=== PATIENT | male | born 1985 | race Caucasian/White ===

== ENCOUNTER 2018-05-29 20:06 | Inpatient (IN) | payer BC ==
[~2018-05-29] VITALS: Ht 170.2 cm; Wt 306.0 kg
[2018-05-29] MEDS ORDERED: PRINZIDE 12.5 M1 TAB PO (21:44)
[2018-05-29 22:41] LABS: HEMATOCRIT 42.1 % (42.0-52.0); MEAN CELL VOLUME 90 fl (80.0-100.0); MEAN CORPUSCULAR HEMOGLOBIN 28 pg (27.0-31.0); MEAN CORPUSCULAR HGB CONC 31 g/dl (33.0-37.0); MEAN PLATELET VOLUME 8.8 fl (7.4-10.4); PLATELET COUNT 267 K/mm3 (130-400); RED BLOOD COUNT 4.67 M/mm3 (4.20-5.60); REDCELL DISTRIBUTION WIDTH-CV 14.2 % (11.5-14.5)
[2018-05-29 22:45] LABS: INR 1.2 (0.8-3.0)
[2018-05-29 22:49] LABS: ALBUMIN 3.7 gm/dL (3.5-5.0); BILIRUBIN,TOTAL 0.5 mg/dL (0.0-1.0); CALCIUM 8.6 mg/dL (8.4-10.2); CREATININE, serum 0.8 mg/dL (0.66-1.25); POTASSIUM 4.4 mmol/L (3.4-5.0); TOTAL PROTEIN 6.9 gm/dL (6.4-8.2)
[2018-05-29] MEDS ORDERED: AMOXICILLIN 25250 MG (23:05)
[2018-05-29 23:27] LABS: BAND 2 % (0-10); EOSINOPHIL 3 % (0-4); LYMPHOCYTE 25 % (20.0-51.0); NEUTROPHILS 62 % (42.0-75.2); PLATELET ESTIMATE NORMAL (NORMAL)
[2018-05-29 23:28] LABS: HYPOCHROMIA 2+; POLYCHROMASIA 1+
[2018-05-30] VITALS (7 sets, daily range): BP systolic 148–181; BP diastolic 82–123; PULSE 74–90; TEMP 97.3–98.4
[2018-05-30 04:43] LABS: COLLECTION METHOD CLEAN CATCH
[2018-05-30 04:49] LABS: PH 6 (5-8); SQUAMOUS EPITHELIAL 0-2 /hpf; URINE APPEARANCE Clear; URINE BACTERIA None Seen /hpf; URINE BILIRUBIN Negative (NEGATIVE); URINE BLOOD Negative (NEGATIVE); URINE COLOR Yellow; URINE GLUCOSE Negative (NEGATIVE); URINE KETONE Negative (NEGATIVE); URINE LEUKOCYTE ESTERASE Negative (NEGATIVE); URINE NITRATE Negative (NEGATIVE); URINE PROTEIN(semi-quant) Negative (NEGATIVE); URINE RBC 0-2 /hpf; URINE UROBILINOGEN Negative (NEGATIVE)
[2018-05-30 06:24] LABS: HEMATOCRIT 44.5 % (42.0-52.0); HEMOGLOBIN 13.7 g/dl (13.5-18.0)
[2018-05-30 14:32] LABS: ARTERIAL BLD GAS O2 SATURATION 92.4 % (92-100); ARTERIAL BLD GAS TCO2 CT 36.9; ARTERIAL BLOOD GAS BASE EXCESS 4.6 (-2-2); ARTERIAL BLOOD GAS HCO3 34.5 meq/L (22-26); ARTERIAL BLOOD GAS PO2 74.7 mmHg (80-100); ARTERIAL BLOOD GAS pH 7.26 (7.35-7.45)
[2018-05-30 14:34] LABS: ARTERIAL BLOOD GAS PCO2 79.4 mmHg (35-45)
[2018-05-30 17:14] LABS: ARTERIAL BLD GAS O2 SATURATION 82.3 % (92-100); ARTERIAL BLD GAS TCO2 CT 37.8; ARTERIAL BLOOD GAS BASE EXCESS 4.9 (-2-2); ARTERIAL BLOOD GAS HCO3 35.3 meq/L (22-26); ARTERIAL BLOOD GAS PO2 52.4 mmHg (80-100); ARTERIAL BLOOD GAS pH 7.25 (7.35-7.45)
[2018-05-31] VITALS (13 sets, daily range): BP systolic 152–172; BP diastolic 73–123; PULSE 81–92; TEMP 97.2–100.4
[2018-05-31 07:07] LABS: BASO # 0.1 (0.0-0.2); BASO % 0.5 % (0.0-2.0); EOS # 0.1 (0.0-0.7); EOS % 0.5 % (0-4.0); GRAN % 80.9 % (42.2-75.2); HEMATOCRIT 41.5 % (42.0-52.0); HEMOGLOBIN 12.6 g/dl (13.5-18.0); LYMPH # 1.1 (1.2-3.4); LYMPH % 10.7 % (20.0-51.0); MEAN CELL VOLUME 92 fl (80.0-100.0); MEAN CORPUSCULAR HEMOGLOBIN 28 pg (27.0-31.0); MEAN CORPUSCULAR HGB CONC 30 g/dl (33.0-37.0); MEAN PLATELET VOLUME 9.1 fl (7.4-10.4); MONO # 0.7 (0.1-0.6); MONO % 6.9 % (1.7-9.3); PLATELET COUNT 298 K/mm3 (130-400); REDCELL DISTRIBUTION WIDTH-CV 14.1 % (11.5-14.5)
[2018-05-31 07:22] LABS: CALCIUM 8.8 mg/dL (8.4-10.2); CREATININE, serum 0.75 mg/dL (0.66-1.25); POTASSIUM 4.1 mmol/L (3.4-5.0)
[2018-05-31 13:19] LABS: ARTERIAL BLD GAS O2 SATURATION 93.3 % (92-100); ARTERIAL BLD GAS TCO2 CT 37.6; ARTERIAL BLOOD GAS BASE EXCESS 6.4 (-2-2); ARTERIAL BLOOD GAS HCO3 35.4 meq/L (22-26)
[2018-05-31 13:20] LABS: ARTERIAL BLOOD GAS PCO2 73.5 mmHg (35-45)
[2018-05-31 21:54] LABS: ARTERIAL BLD GAS O2 SATURATION 92.2 % (92-100); ARTERIAL BLD GAS TCO2 CT 38.1; ARTERIAL BLOOD GAS BASE EXCESS 7.7 (-2-2); ARTERIAL BLOOD GAS HCO3 35.9 meq/L (22-26); ARTERIAL BLOOD GAS PO2 66.9 mmHg (80-100); ARTERIAL BLOOD GAS pH 7.32 (7.35-7.45)
[2018-05-31 21:56] LABS: ARTERIAL BLOOD GAS PCO2 70.9 mmHg (35-45)
[2018-06-01] VITALS (600 sets, daily range): BP systolic 122–199; BP diastolic 55–127; PULSE 73–94; TEMP 97.9–100; O2SAT 79–100
[2018-06-01 01:23] LABS: ARTERIAL BLD GAS O2 SATURATION 96.2 % (92-100); ARTERIAL BLD GAS TCO2 CT 33.6; ARTERIAL BLOOD GAS BASE EXCESS 5.1 (-2-2); ARTERIAL BLOOD GAS HCO3 31.9 meq/L (22-26); ARTERIAL BLOOD GAS PCO2 56.5 mmHg (35-45); ARTERIAL BLOOD GAS pH 7.37 (7.35-7.45)
[2018-06-01 05:59] LABS: ARTERIAL BLD GAS O2 SATURATION 95.2 % (92-100); ARTERIAL BLD GAS TCO2 CT 39.5; ARTERIAL BLOOD GAS BASE EXCESS 8.3 (-2-2); ARTERIAL BLOOD GAS HCO3 37.2 meq/L (22-26); ARTERIAL BLOOD GAS PO2 84.8 mmHg (80-100); ARTERIAL BLOOD GAS pH 7.32 (7.35-7.45)
[2018-06-01 06:03] LABS: ARTERIAL BLOOD GAS PCO2 74.7 mmHg (35-45)
[2018-06-01 07:22] LABS: BASO % 0.4 % (0.0-2.0); EOS # 0.1 (0.0-0.7); EOS % 1.4 % (0-4.0); GRAN # 6.5 (1.4-6.5); GRAN % 70.5 % (42.2-75.2); HEMATOCRIT 39.8 % (42.0-52.0); HEMOGLOBIN 12.2 g/dl (13.5-18.0); LYMPH # 1.4 (1.2-3.4); LYMPH % 14.8 % (20.0-51.0); MEAN CELL VOLUME 91 fl (80.0-100.0); MEAN CORPUSCULAR HEMOGLOBIN 28 pg (27.0-31.0); MEAN CORPUSCULAR HGB CONC 31 g/dl (33.0-37.0); MEAN PLATELET VOLUME 8.7 fl (7.4-10.4); MONO # 1.2 (0.1-0.6); MONO % 12.6 % (1.7-9.3); PLATELET COUNT 307 K/mm3 (130-400); REDCELL DISTRIBUTION WIDTH-CV 14.1 % (11.5-14.5)
[2018-06-01 07:46] LABS: CALCIUM 8.8 mg/dL (8.4-10.2); CREATININE, serum 0.71 mg/dL (0.66-1.25); POTASSIUM 4.1 mmol/L (3.4-5.0)
[2018-06-01 12:40] LABS: ARTERIAL BLOOD GAS pH 7.33 (7.35-7.45)
[2018-06-01 12:41] LABS: ARTERIAL BLD GAS O2 SATURATION 87.3 % (92-100); ARTERIAL BLOOD GAS BASE EXCESS 7.5 (-2-2); ARTERIAL BLOOD GAS HCO3 36.1 meq/L (22-26); ARTERIAL BLOOD GAS PCO2 70.9 mmHg (35-45); ARTERIAL BLOOD GAS PO2 53.2 mmHg (80-100)
[2018-06-01 16:01] LABS: ARTERIAL BLOOD GAS PCO2 66.8 mmHg (35-45); ARTERIAL BLOOD GAS pH 7.34 (7.35-7.45)
[2018-06-01 16:02] LABS: ARTERIAL BLD GAS O2 SATURATION 91.8 % (92-100); ARTERIAL BLOOD GAS BASE EXCESS 7.5 (-2-2); ARTERIAL BLOOD GAS HCO3 35.6 meq/L (22-26); ARTERIAL BLOOD GAS PO2 67.4 mmHg (80-100)
[2018-06-01 18:12] LABS: ARTERIAL BLD GAS O2 SATURATION 91.9 % (92-100); ARTERIAL BLD GAS TCO2 CT 34.3; ARTERIAL BLOOD GAS BASE EXCESS 8.4 (-2-2); ARTERIAL BLOOD GAS HCO3 32.9 meq/L (22-26); ARTERIAL BLOOD GAS PO2 58.2 mmHg (80-100); ARTERIAL BLOOD GAS pH 7.48 (7.35-7.45)
[2018-06-01 18:12] LABS: CALCIUM 8.7 mg/dL (8.4-10.2); CREATININE, serum 0.94 mg/dL (0.66-1.25); MAGNESIUM 1.9 mg/dL (1.6-2.3); POTASSIUM 3.9 mmol/L (3.4-5.0)
[2018-06-02] VITALS (1139 sets, daily range): BP systolic 113–165; BP diastolic 66–107; PULSE 71–83; TEMP 97.8–98.8; O2SAT 89–100
[2018-06-02 05:33] LABS: ARTERIAL BLD GAS O2 SATURATION 89.9 % (92-100); ARTERIAL BLD GAS TCO2 CT 32.9; ARTERIAL BLOOD GAS BASE EXCESS 8.6 (-2-2); ARTERIAL BLOOD GAS HCO3 31.7 meq/L (22-26); ARTERIAL BLOOD GAS PCO2 38.2 mmHg (35-45); ARTERIAL BLOOD GAS PO2 54.7 mmHg (80-100); ARTERIAL BLOOD GAS pH 7.54 (7.35-7.45)
[2018-06-02 05:34] LABS: BASO # 0.1 (0.0-0.2); BASO % 0.7 % (0.0-2.0); EOS # 0.2 (0.0-0.7); EOS % 2.5 % (0-4.0); GRAN # 4.3 (1.4-6.5); GRAN % 62.7 % (42.2-75.2); HEMATOCRIT 37.6 % (42.0-52.0); HEMOGLOBIN 11.8 g/dl (13.5-18.0); LYMPH # 1.4 (1.2-3.4); MEAN CELL VOLUME 89 fl (80.0-100.0); MEAN CORPUSCULAR HEMOGLOBIN 28 pg (27.0-31.0); MEAN CORPUSCULAR HGB CONC 31 g/dl (33.0-37.0); MONO # 0.9 (0.1-0.6); MONO % 13.7 % (1.7-9.3); PLATELET COUNT 279 K/mm3 (130-400); RED BLOOD COUNT 4.24 M/mm3 (4.20-5.60); REDCELL DISTRIBUTION WIDTH-CV 14.3 % (11.5-14.5)
[2018-06-02 05:48] LABS: CALCIUM 8.9 mg/dL (8.4-10.2); MAGNESIUM 1.9 mg/dL (1.6-2.3); PHOSPHOROUS 3.4 mg/dL (2.5-4.5); POTASSIUM 3.4 mmol/L (3.4-5.0)
[2018-06-02 13:49] LABS: ARTERIAL BLD GAS O2 SATURATION 95.1 % (92-100); ARTERIAL BLD GAS TCO2 CT 42.2; ARTERIAL BLOOD GAS BASE EXCESS 13.3 (-2-2); ARTERIAL BLOOD GAS HCO3 40.3 meq/L (22-26); ARTERIAL BLOOD GAS PCO2 62.2 mmHg (35-45); ARTERIAL BLOOD GAS PO2 74.4 mmHg (80-100); ARTERIAL BLOOD GAS pH 7.43 (7.35-7.45)
[2018-06-02 18:27] LABS: CALCIUM 8.9 mg/dL (8.4-10.2); CREATININE, serum 1.12 mg/dL (0.66-1.25); MAGNESIUM 2.2 mg/dL (1.6-2.3); PHOSPHOROUS 6.3 mg/dL (2.5-4.5); POTASSIUM 4.1 mmol/L (3.4-5.0)
[2018-06-03] VITALS (790 sets, daily range): BP systolic 12–136; BP diastolic 63–89; PULSE 78–88; TEMP 97.3–98.8; O2SAT 84–99
[2018-06-03 05:26] LABS: BASO # 0.1 (0.0-0.2); BASO % 0.8 % (0.0-2.0); EOS # 0.3 (0.0-0.7); EOS % 4.8 % (0-4.0); GRAN # 4.2 (1.4-6.5); GRAN % 70.7 % (42.2-75.2); HEMATOCRIT 37.9 % (42.0-52.0); LYMPH # 0.6 (1.2-3.4); LYMPH % 10.7 % (20.0-51.0); MEAN CELL VOLUME 89 fl (80.0-100.0); MEAN CORPUSCULAR HEMOGLOBIN 28 pg (27.0-31.0); MEAN CORPUSCULAR HGB CONC 32 g/dl (33.0-37.0); MEAN PLATELET VOLUME 8.8 fl (7.4-10.4); MONO # 0.8 (0.1-0.6); MONO % 12.8 % (1.7-9.3); PLATELET COUNT 271 K/mm3 (130-400); RED BLOOD COUNT 4.24 M/mm3 (4.20-5.60); REDCELL DISTRIBUTION WIDTH-CV 14.7 % (11.5-14.5)
[2018-06-03 05:36] LABS: ARTERIAL BLD GAS O2 SATURATION 93.1 % (92-100); ARTERIAL BLD GAS TCO2 CT 36.6; ARTERIAL BLOOD GAS BASE EXCESS 9.3 (-2-2); ARTERIAL BLOOD GAS PCO2 52.1 mmHg (35-45); ARTERIAL BLOOD GAS pH 7.45 (7.35-7.45)
[2018-06-03 05:44] LABS: CALCIUM 8.6 mg/dL (8.4-10.2); CREATININE, serum 0.99 mg/dL (0.66-1.25); MAGNESIUM 2.3 mg/dL (1.6-2.3); PHOSPHOROUS 5.2 mg/dL (2.5-4.5); POTASSIUM 3.7 mmol/L (3.4-5.0)
[2018-06-04] VITALS (926 sets, daily range): BP systolic 95–154; BP diastolic 43–82; PULSE 77–95; TEMP 97.9–99.3; O2SAT 74–99
[2018-06-04 05:24] LABS: BASO % 0.6 % (0.0-2.0); EOS # 0.3 (0.0-0.7); GRAN # 3.6 (1.4-6.5); GRAN % 67.9 % (42.2-75.2); HEMATOCRIT 39.1 % (42.0-52.0); HEMOGLOBIN 11.8 g/dl (13.5-18.0); LYMPH # 0.8 (1.2-3.4); LYMPH % 15.8 % (20.0-51.0); MEAN CELL VOLUME 93 fl (80.0-100.0); MEAN CORPUSCULAR HEMOGLOBIN 28 pg (27.0-31.0); MEAN CORPUSCULAR HGB CONC 30 g/dl (33.0-37.0); MEAN PLATELET VOLUME 8.4 fl (7.4-10.4); MONO # 0.6 (0.1-0.6); MONO % 10.5 % (1.7-9.3); PLATELET COUNT 253 K/mm3 (130-400); RED BLOOD COUNT 4.22 M/mm3 (4.20-5.60)
[2018-06-04 05:37] LABS: CALCIUM 8.5 mg/dL (8.4-10.2); CREATININE, serum 1.28 mg/dL (0.66-1.25); POTASSIUM 4.1 mmol/L (3.4-5.0)
[2018-06-04 05:48] LABS: MAGNESIUM 2.4 mg/dL (1.6-2.3); PHOSPHOROUS 5.7 mg/dL (2.5-4.5)
[2018-06-04 06:13] LABS: ARTERIAL BLOOD GAS pH 7.34 (7.35-7.45)
[2018-06-04 06:16] LABS: ARTERIAL BLOOD GAS BASE EXCESS 7.5 (-2-2); ARTERIAL BLOOD GAS HCO3 35.4 meq/L (22-26); ARTERIAL BLOOD GAS PO2 64.5 mmHg (80-100)
[2018-06-04 06:17] LABS: ARTERIAL BLD GAS TCO2 CT 37.5
[2018-06-04 13:48] LABS: COLLECTION METHOD CLEAN CATCH
[2018-06-04 13:57] LABS: PH 5 (5-8); URINE APPEARANCE Hazy; URINE BACTERIA None Seen /hpf; URINE BILIRUBIN Negative (NEGATIVE); URINE BLOOD 2+ (NEGATIVE); URINE COLOR Yellow; URINE GLUCOSE Negative (NEGATIVE); URINE KETONE Negative (NEGATIVE); URINE LEUKOCYTE ESTERASE Trace (NEGATIVE); URINE NITRATE Negative (NEGATIVE); URINE PROTEIN(semi-quant) 2+ (NEGATIVE); URINE RBC >50 /hpf; URINE UROBILINOGEN >=4.0 mg/dL (NEGATIVE)
[2018-06-04 17:37] LABS: ARTERIAL BLD GAS TCO2 CT 35.9; ARTERIAL BLOOD GAS BASE EXCESS 6.6 (-2-2); ARTERIAL BLOOD GAS HCO3 33.9 meq/L (22-26); ARTERIAL BLOOD GAS PCO2 62.9 mmHg (35-45); ARTERIAL BLOOD GAS PO2 61.5 mmHg (80-100); ARTERIAL BLOOD GAS pH 7.35 (7.35-7.45)
[2018-06-04 22:14] LABS: ARTERIAL BLD GAS O2 SATURATION 91.3 % (92-100); ARTERIAL BLD GAS TCO2 CT 33.3; ARTERIAL BLOOD GAS BASE EXCESS 6.2 (-2-2); ARTERIAL BLOOD GAS HCO3 31.8 meq/L (22-26); ARTERIAL BLOOD GAS PCO2 50.2 mmHg (35-45); ARTERIAL BLOOD GAS PO2 60.5 mmHg (80-100); ARTERIAL BLOOD GAS pH 7.42 (7.35-7.45)
[2018-06-05] VITALS (1414 sets, daily range): BP systolic 117–146; BP diastolic 70–89; PULSE 75–90; TEMP 98.5–100.8; O2SAT 88–100
[2018-06-05 00:14] LABS: ARTERIAL BLD GAS O2 SATURATION 94.6 % (92-100); ARTERIAL BLD GAS TCO2 CT 34.5; ARTERIAL BLOOD GAS BASE EXCESS 6.9 (-2-2); ARTERIAL BLOOD GAS HCO3 32.9 meq/L (22-26); ARTERIAL BLOOD GAS PCO2 53.1 mmHg (35-45); ARTERIAL BLOOD GAS PO2 77.7 mmHg (80-100); ARTERIAL BLOOD GAS pH 7.41 (7.35-7.45)
[2018-06-05 05:28] LABS: BASO % 0.6 % (0.0-2.0); EOS # 0.3 (0.0-0.7); EOS % 5.8 % (0-4.0); GRAN # 3.3 (1.4-6.5); GRAN % 66.2 % (42.2-75.2); HEMOGLOBIN 11.2 g/dl (13.5-18.0); LYMPH # 0.7 (1.2-3.4); LYMPH % 13.8 % (20.0-51.0); MEAN CELL VOLUME 92 fl (80.0-100.0); MEAN CORPUSCULAR HEMOGLOBIN 28 pg (27.0-31.0); MEAN CORPUSCULAR HGB CONC 31 g/dl (33.0-37.0); MEAN PLATELET VOLUME 9.1 fl (7.4-10.4); MONO # 0.7 (0.1-0.6); MONO % 13.4 % (1.7-9.3); PLATELET COUNT 259 K/mm3 (130-400)
[2018-06-05 05:29] LABS: HEMATOCRIT 36.7 % (42.0-52.0)
[2018-06-05 05:37] LABS: CALCIUM 8.8 mg/dL (8.4-10.2); CREATININE, serum 0.9 mg/dL (0.66-1.25); POTASSIUM 4.3 mmol/L (3.4-5.0)
[2018-06-06] VITALS (1188 sets, daily range): BP systolic 128–149; BP diastolic 76–97; PULSE 78–99; TEMP 98.9–100.7; O2SAT 78–100
[2018-06-06 06:18] LABS: ALBUMIN 3.6 gm/dL (3.5-5.0); BILIRUBIN,TOTAL 0.6 mg/dL (0.0-1.0); CREATININE, serum 0.77 mg/dL (0.66-1.25); MAGNESIUM 2.3 mg/dL (1.6-2.3); POTASSIUM 4.4 mmol/L (3.4-5.0)
[2018-06-06 06:25] LABS: PRE ALBUMIN 15.9 mg/dL (17.6-36.0)
[2018-06-06 09:09] LABS: BASO % 0.3 % (0.0-2.0); EOS # 0.3 (0.0-0.7); EOS % 4.7 % (0-4.0); GRAN # 3.9 (1.4-6.5); GRAN % 67.7 % (42.2-75.2); HEMATOCRIT 37.3 % (42.0-52.0); HEMOGLOBIN 11.2 g/dl (13.5-18.0); LYMPH # 0.9 (1.2-3.4); LYMPH % 15.3 % (20.0-51.0); MEAN CELL VOLUME 93 fl (80.0-100.0); MEAN CORPUSCULAR HEMOGLOBIN 28 pg (27.0-31.0); MEAN CORPUSCULAR HGB CONC 30 g/dl (33.0-37.0); MEAN PLATELET VOLUME 9.6 fl (7.4-10.4); MONO # 0.7 (0.1-0.6); MONO % 11.8 % (1.7-9.3); PLATELET COUNT 260 K/mm3 (130-400); RED BLOOD COUNT 4.02 M/mm3 (4.20-5.60); REDCELL DISTRIBUTION WIDTH-CV 14.6 % (11.5-14.5)
[2018-06-06 14:45] LABS: COLLECTION METHOD CLEAN CATCH
[2018-06-06 15:07] LABS: PH 9 (5-8); SQUAMOUS EPITHELIAL None Seen /hpf; URINE APPEARANCE Clear; URINE BACTERIA None Seen /hpf; URINE BILIRUBIN Negative (NEGATIVE); URINE BLOOD 2+ (NEGATIVE); URINE COLOR Yellow; URINE GLUCOSE Negative (NEGATIVE); URINE KETONE Negative (NEGATIVE); URINE LEUKOCYTE ESTERASE Negative (NEGATIVE); URINE NITRATE Negative (NEGATIVE); URINE PROTEIN(semi-quant) 2+ (NEGATIVE); URINE RBC >50 /hpf; URINE UROBILINOGEN >=4.0 mg/dL (NEGATIVE)
[2018-06-07] VITALS (452 sets, daily range): BP systolic 124–145; BP diastolic 67–97; PULSE 75–99; TEMP 99.1–99.6; O2SAT 84–99
[2018-06-07 05:28] LABS: BASO % 0.1 % (0.0-2.0); GRAN # 6.1 (1.4-6.5); GRAN % 88.9 % (42.2-75.2); HEMOGLOBIN 11.3 g/dl (13.5-18.0); LYMPH # 0.5 (1.2-3.4); LYMPH % 6.8 % (20.0-51.0); MEAN CELL VOLUME 91 fl (80.0-100.0); MEAN CORPUSCULAR HEMOGLOBIN 29 pg (27.0-31.0); MEAN CORPUSCULAR HGB CONC 32 g/dl (33.0-37.0); MEAN PLATELET VOLUME 9.2 fl (7.4-10.4); MONO # 0.3 (0.1-0.6); MONO % 3.9 % (1.7-9.3); PLATELET COUNT 290 K/mm3 (130-400); RED BLOOD COUNT 3.92 M/mm3 (4.20-5.60); REDCELL DISTRIBUTION WIDTH-CV 14.1 % (11.5-14.5)
[2018-06-07 05:31] LABS: HEMATOCRIT 35.7 % (42.0-52.0)
[2018-06-07 05:40] LABS: ALBUMIN 3.6 gm/dL (3.5-5.0); BILIRUBIN,TOTAL 0.3 mg/dL (0.0-1.0); CALCIUM 9.2 mg/dL (8.4-10.2); CREATININE, serum 0.75 mg/dL (0.66-1.25); POTASSIUM 4.8 mmol/L (3.4-5.0); TOTAL PROTEIN 7.1 gm/dL (6.4-8.2)
[2018-06-07 05:50] LABS: MAGNESIUM 2.2 mg/dL (1.6-2.3)
[2018-06-07 06:01] LABS: ARTERIAL BLD GAS O2 SATURATION 91.6 % (92-100); ARTERIAL BLD GAS TCO2 CT 35.3; ARTERIAL BLOOD GAS BASE EXCESS 6.7 (-2-2); ARTERIAL BLOOD GAS HCO3 33.5 meq/L (22-26); ARTERIAL BLOOD GAS PCO2 58.6 mmHg (35-45); ARTERIAL BLOOD GAS PO2 73.5 mmHg (80-100); ARTERIAL BLOOD GAS pH 7.38 (7.35-7.45)
== END 2018-06-07 10:45 | DRG 207 ==
LOC: COL.ER 20:06 → MEDICAL 22:35 → COL.ER 22:35 → ICU 22:35 → MEDICAL 05-31 06:21 → ICU 06-01 07:40 → MEDICAL 06-01 07:40 → ICU 06-01 07:40
PROVIDERS: Emergency Medicine; Internal Medicine; Internal Medicine Pulmonary Disease; Nurse Practitioner; Nurse Practitioner Family; Physician Assistant
PROC: 5A1955Z Respiratory Ventilation, Greater than 96 Consecutive Hours (ICD-10-PCS; principal; 2018-06-01)
DX: J96.01 Acute respiratory failure with hypoxia (principal); J69.0 Pneumonitis due to inhalation of food and vomit; Z68.44 Body mass index [BMI] 60.0-69.9, adult; N17.9 Acute kidney failure, unspecified; E87.4 Mixed disorder of acid-base balance; I16.0 Hypertensive urgency; J96.02 Acute respiratory failure with hypercapnia; R04.0 Epistaxis; E66.01 Morbid (severe) obesity due to excess calories; Z87.891 Personal history of nicotine dependence; I10 Essential (primary) hypertension; E83.39 Other disorders of phosphorus metabolism
CPT/HCPCS: 99223-AI; 99231-AI; 99232-AI; 99233-AI; 99239; A4314; C1751; C1894; G0378; J0330; J0360; J1650; J1940; J2250; J2543; J2704; J2930; J3010; J3480; J7030; J7040; J7050; J7120; P9047

== ENCOUNTER → 2018-07-07 | Outpatient (CLI) | payer BC ==
[~2018-07-07] MED LIST: AMOXICILLIN 25250 MG; PRINZIDE 12.5 M1 TAB PO
== END ==
LOC: COL.VAS 09:14
DX: I27.20 Pulmonary hypertension, unspecified (principal); J32.9 Chronic sinusitis, unspecified

== ENCOUNTER → 2018-08-08 | Outpatient (CLI) | payer BC | LOC: COL.PUL 11:26 | DX: I27.20 Pulmonary hypertension, unspecified (principal); R05 Cough; J32.9 Chronic sinusitis, unspecified; Z87.891 Personal history of nicotine dependence ==

== ENCOUNTER → 2018-12-26 | Outpatient (CLI) | payer BC ==
[2018-12-26 12:10] LABS: ARTERIAL BLD GAS O2 SATURATION 91.9 % (92-100); ARTERIAL BLD GAS TCO2 CT 30.4; ARTERIAL BLOOD GAS BASE EXCESS 4.2 (-2-2); ARTERIAL BLOOD GAS PCO2 43.8 mmHg (35-45); ARTERIAL BLOOD GAS pH 7.44 (7.35-7.45)
== END ==
LOC: COL.PUL 12-08 11:15
PROVIDERS: Internal Medicine Pulmonary Disease
DX: J96.12 Chronic respiratory failure with hypercapnia (principal)

== ENCOUNTER 2019-03-06 17:21 | Inpatient (IN) | payer BC ==
[2019-03-06] VITALS (45 sets, daily range): BP systolic 129; BP diastolic 60; PULSE 79; TEMP 97.6; O2SAT 59–100
[~2019-03-06] VITALS: Ht 170.2 cm; Wt 188.0 kg
[2019-03-06 18:10] LABS: BASO % 0.5 % (0.0-2.0); EOS # 0.2 (0.0-0.7); EOS % 2.9 % (0-4.0); GRAN # 3.7 (1.4-6.5); GRAN % 62.8 % (42.2-75.2); HEMATOCRIT 46.3 % (42.0-52.0); HEMOGLOBIN 15.1 g/dl (13.5-18.0); LYMPH # 1.4 (1.2-3.4); LYMPH % 23.2 % (20.0-51.0); MEAN CELL VOLUME 88 fl (80.0-100.0); MEAN CORPUSCULAR HEMOGLOBIN 29 pg (27.0-31.0); MEAN CORPUSCULAR HGB CONC 33 g/dl (33.0-37.0); MEAN PLATELET VOLUME 8.9 fl (7.4-10.4); MONO # 0.6 (0.1-0.6); MONO % 10.1 % (1.7-9.3); PLATELET COUNT 288 K/mm3 (130-400); RED BLOOD COUNT 5.28 M/mm3 (4.20-5.60); REDCELL DISTRIBUTION WIDTH-CV 14.5 % (11.5-14.5)
[2019-03-06 18:22] LABS: ALANINE AMINOTRANSFERASE 186 U/L (21-72); ALBUMIN 4.7 gm/dL (3.5-5.0); ALKALINE PHOSPHATASE 150 U/L (50-136); ANION GAP 12 mmol/L (7-16); AST,SGOT 157 U/L (15-37); BILIRUBIN,TOTAL 3.8 mg/dL (0.0-1.0); BLOOD UREA NITROGEN 13 mg/dL (9-20); CALCIUM 9.5 mg/dL (8.4-10.2); CARBON DIOXIDE 29 mmol/L (22-30); CHLORIDE 99 mmol/L (98-107); CREATININE, serum 1.21 (0.66-1.25); GLUCOSE 119 mg/dL (74-106); POTASSIUM 3.6 mmol/L (3.4-5.0); SODIUM 139 mmol/L (137-145); TOTAL PROTEIN 8.5 gm/dL (6.4-8.2)
[2019-03-06 18:42] LABS: TROPONIN-I < 0.012 ng/mL (0.000-0.035)
[2019-03-06 19:28] LABS: LIPASE 33360 U/L (23-300)
[2019-03-06 21:06] LABS: CHOLESTEROL RISK RATIO 4.4
--- NOTE | 2019-03-06 21:33 | NUR ---
RECEIVED REPORT FROM RAMAN VALENTE.
--- NOTE | 2019-03-06 21:45 | NUR ---
PT ARRIVED ON UNIT, ABLE TO TRANSFER SELF TO BED WITH STANDBY ASSIST. PT ALERT AND ORIENTED X 4, COMPLAINS OF PAIN IN THE ABDOMEN /. PT ORIENTED TO ROOM, USE OF CALL LIGHT AND HOSPITAL POLICY. PT VERBALIZED UNDERSTANDING. WILL CONTINUE TO MONITOR.
[2019-03-06] MEDS ORDERED: HYGROTON 2525 MG/TAB PO (22:01)
[2019-03-06] MEDS ORDERED: NORVASC 10MG10 MG PO (22:02)
[2019-03-06] MEDS ORDERED: PRINIVIL40 MG PO (22:02)
[2019-03-06] MEDS ORDERED: ROBITUSSIN A-C S1 M1 PO (22:04)
[2019-03-06] MEDS ORDERED: IPRATROPIUM BROM3 M1 IH (22:05)
[2019-03-06] MEDS ORDERED: CATAPRES 0.1MG0.1 MG PO (22:07)
[2019-03-06] MEDS ORDERED: PEPCID 20MG TAB20 MG PO (22:08)
[2019-03-06] MEDS ORDERED: LASIX 20MG TABL20 MG PO (22:09)
[2019-03-07] VITALS (831 sets, daily range): BP systolic 126–184; BP diastolic 77–126; PULSE 86–109; TEMP 97.5–98.3; O2SAT 58–100
[2019-03-07 00:01] LABS: PHOSPHOROUS 3.8 mg/dL (2.5-4.5)
[2019-03-07 05:05] LABS: HEMATOCRIT 51.8 % (42.0-52.0); HEMOGLOBIN 16.5 g/dl (13.5-18.0); MEAN CELL VOLUME 90 fl (80.0-100.0); MEAN CORPUSCULAR HEMOGLOBIN 29 pg (27.0-31.0); MEAN CORPUSCULAR HGB CONC 32 g/dl (33.0-37.0); MEAN PLATELET VOLUME 8.8 fl (7.4-10.4); PLATELET COUNT 297 K/mm3 (130-400); RED BLOOD COUNT 5.77 M/mm3 (4.20-5.60)
[2019-03-07 05:15] LABS: ALBUMIN 4.5 gm/dL (3.5-5.0); BILIRUBIN,TOTAL 1.4 mg/dL (0.0-1.0); CALCIUM 8.5 mg/dL (8.4-10.2); CREATININE, serum 0.94 (0.66-1.25); POTASSIUM 4.1 mmol/L (3.4-5.0)
[2019-03-07 05:26] LABS: INR 1.1 (0.8-3.0); PROTHROMBIN TIME 12.7 SECONDS (9.7-12.8)
[2019-03-07 05:34] LABS: LYMPHOCYTE 2 % (20.0-51.0); NEUTROPHILS 92 % (42.0-75.2)
[2019-03-07 05:35] LABS: HYPOCHROMIA 2+; PLATELET ESTIMATE NORMAL (NORMAL)
--- NOTE | 2019-03-07 07:00 | NUR ---
BEDSIDE REPORT RECEIVED FROM RAMAN DEGROOT. PATIENT CURRENTLY SLEEPING AT THIS TIME. VS WNL. PLAN OF CARE REVIEWED AT THIS TIME.
--- NOTE | 2019-03-07 12:30 | NUR ---
DR. SCOTT HERE TO SEE PATIENT. NO NEW ORDERS RECEIVED
--- NOTE | 2019-03-07 16:17 | NUR ---
DR. MALAGON HERE TO SEE PATIENT FOR CONSULT
[2019-03-08] VITALS (834 sets, daily range): BP systolic 92–151; BP diastolic 45–87; PULSE 60–100; TEMP 97.6–98.2; O2SAT 34–100
[2019-03-08 06:14] LABS: HEMOGLOBIN 16.7 g/dl (13.5-18.0); MEAN CELL VOLUME 91 fl (80.0-100.0); MEAN CORPUSCULAR HEMOGLOBIN 29 pg (27.0-31.0); MEAN CORPUSCULAR HGB CONC 32 g/dl (33.0-37.0); MEAN PLATELET VOLUME 9.2 fl (7.4-10.4); PLATELET COUNT 322 K/mm3 (130-400); RED BLOOD COUNT 5.79 M/mm3 (4.20-5.60); REDCELL DISTRIBUTION WIDTH-CV 16.7 % (11.5-14.5)
[2019-03-08 06:30] LABS: ALBUMIN 3.7 gm/dL (3.5-5.0); BILIRUBIN,TOTAL 1.5 mg/dL (0.0-1.0); CALCIUM 7.8 mg/dL (8.4-10.2); CREATININE, serum 2.58 (0.66-1.25); TOTAL PROTEIN 6.9 gm/dL (6.4-8.2)
[2019-03-08 06:51] LABS: HEMATOCRIT 52.9 % (42.0-52.0)
--- NOTE | 2019-03-08 08:16 | NUR ---
Sitting up at bedside. Awake alert, reports lessening of abdominal pain this am with use of WAITER/WAITRESS CLUB. SPO2 on RA 87-88. Placed on NC, orders for IS obtained, enc cough and deep breathe, LLL diminished posteriorly, crackles to right base. SPO2 on 3L 92%.
--- NOTE | 2019-03-08 09:00 | NUR ---
Pt bp MAP around 50, more drowsy, RN turns off continuous dilaudid, hospitalist notified of increased oxygen needs and lower bp this am.
[2019-03-08 09:27] LABS: BAND 9 % (0-10); LYMPHOCYTE 9 % (20.0-51.0); NEUTROPHILS 72 % (42.0-75.2)
[2019-03-08 09:29] LABS: PLATELET ESTIMATE NORMAL (NORMAL)
--- NOTE | 2019-03-08 10:26 | NUR ---
Initial visit; Patient thanked Wad Compressor Operator Adjuster for looking in on him and keeping him in her prayers.
--- NOTE | 2019-03-08 14:16 | NUR ---
Consult called to GI. Abd CT results/US results reviewed by phone. No orders at this time.
[2019-03-08 14:33] LABS: MUCOUS Present /lpf; PH 5 (5-8); SQUAMOUS EPITHELIAL 0-2 /hpf; URINE APPEARANCE Hazy; URINE BACTERIA None Seen /hpf; URINE BILIRUBIN Negative (NEGATIVE); URINE BLOOD Negative (NEGATIVE); URINE COLOR Amber; URINE GLUCOSE Negative (NEGATIVE); URINE KETONE Negative (NEGATIVE); URINE LEUKOCYTE ESTERASE Negative (NEGATIVE); URINE NITRATE Negative (NEGATIVE); URINE PROTEIN(semi-quant) Negative (NEGATIVE); URINE RBC 0-2 /hpf; URINE UROBILINOGEN Negative (NEGATIVE)
[2019-03-08 14:37] LABS: COLLECTION METHOD CATHETER
[2019-03-08 15:47] LABS: CREATININE, serum 3.09 (0.66-1.25)
[2019-03-08 16:06] LABS: FRACTIONAL EXCRETION OF NA+ 0.1 %
--- NOTE | 2019-03-08 17:15 | NUR ---
Dr Layne notified of urine output of 250 for entire shift. Orders to decrease IV fluids to 50ml/hr. RN repeats decreased urine output and reconfirms rate change. MD indicates concern for fluid overload.
[2019-03-09] VITALS (442 sets, daily range): BP systolic 136–154; BP diastolic 73–97; PULSE 78–103; TEMP 97.8–98.6; O2SAT 58–100
[2019-03-09 05:50] LABS: HEMATOCRIT 43.4 % (42.0-52.0); MEAN CELL VOLUME 90 fl (80.0-100.0); MEAN CORPUSCULAR HEMOGLOBIN 28 pg (27.0-31.0); MEAN CORPUSCULAR HGB CONC 31 g/dl (33.0-37.0); PLATELET COUNT 245 K/mm3 (130-400); RED BLOOD COUNT 4.83 M/mm3 (4.20-5.60); REDCELL DISTRIBUTION WIDTH-CV 15.9 % (11.5-14.5)
[2019-03-09 05:55] LABS: HEMOGLOBIN 13.6 g/dl (13.5-18.0)
[2019-03-09 05:58] LABS: CREATININE, serum 3.06 (0.66-1.25); POTASSIUM 3.4 mmol/L (3.4-5.0)
[2019-03-09 06:06] LABS: BAND 6 % (0-10); EOSINOPHIL 4 % (0-4); LYMPHOCYTE 5 % (20.0-51.0); NEUTROPHILS 71 % (42.0-75.2); PLATELET ESTIMATE NORMAL (NORMAL)
--- NOTE | 2019-03-09 09:00 | NUR ---
Pt c/o epigastric pain 5/10 described as wrenching, provider informed. Pt denies nausea and has no appetite. Pt provided ice chips.
--- NOTE | 2019-03-09 10:33 | NUR ---
PA[employer]MASTER [employer] student attended clinical rounds with the team. The patient is to stay in ICU and continue to be monitored. PT/OT was ordered. medical staff services coordinator will continue to follow to ensure safe discharge.
--- NOTE | 2019-03-09 14:00 | NUR ---
1201: BS 61; pt provided grape juice with two packets of sugar and one jello. Pt easily able to eat. Will reassess. 1349: BS 76; pt provided one Ensure drink. Will reassess. 1400: Provider informed of blood sugar; wishes to increase D5NS to 75/hr. And assess BS Q4. 1659: BS 78.
--- NOTE | 2019-03-09 18:00 | NUR ---
Pt having decreased output over past two hours. Bladder scan shows pt retaining 587ml of urine. Provider contacted; replacing moreira catheter. 1814: Moreira catheter replaced with 16F by sterile technique. Pt tolerated well. Pt output is 775mL.
--- NOTE | 2019-03-09 20:00 | NUR ---
Patient assessed, vitals stable. States pain level is a 3 but is tolerable. Will continue to monitor.
[2019-03-10] VITALS (686 sets, daily range): BP systolic 135–165; BP diastolic 83–110; PULSE 77–92; TEMP 97.8–99.1; O2SAT 36–99
[2019-03-10 06:07] LABS: BASO % 0.3 % (0.0-2.0); EOS # 0.3 (0.0-0.7); EOS % 3.1 % (0-4.0); GRAN % 73.7 % (42.2-75.2); HEMATOCRIT 39.6 % (42.0-52.0); HEMOGLOBIN 12.6 g/dl (13.5-18.0); MEAN CELL VOLUME 90 fl (80.0-100.0); MEAN CORPUSCULAR HEMOGLOBIN 29 pg (27.0-31.0); MEAN CORPUSCULAR HGB CONC 32 g/dl (33.0-37.0); MEAN PLATELET VOLUME 9.2 fl (7.4-10.4); MONO # 1.4 (0.1-0.6); MONO % 13.3 % (1.7-9.3); PLATELET COUNT 247 K/mm3 (130-400); RED BLOOD COUNT 4.38 M/mm3 (4.20-5.60); REDCELL DISTRIBUTION WIDTH-CV 15.7 % (11.5-14.5)
[2019-03-10 06:17] LABS: ALBUMIN 3.4 gm/dL (3.5-5.0); BILIRUBIN,TOTAL 1.1 mg/dL (0.0-1.0); CALCIUM 8.7 mg/dL (8.4-10.2); CREATININE, serum 2.19 (0.66-1.25); MAGNESIUM 2.4 mg/dL (1.6-2.3); POTASSIUM 3.5 mmol/L (3.4-5.0); TOTAL PROTEIN 6.8 gm/dL (6.4-8.2)
--- NOTE | 2019-03-10 07:45 | NUR ---
PTS PAIN IS AT 5/10 IN EPIGASTRIC REGION DESCRIBED "WRENCHING". PT DENIES SOB OR PAIN ELSEWHERE. PT DOES ADMIT TO HAVING FREQUENT FLATULENCE THIS AM.
--- NOTE | 2019-03-10 16:30 | NUR ---
PT STATES HIS PAIN RANGES FROM 3-5/10 IN EPIGASTRIC REGION DESCRIBED "WRENCHING" AND CONTINUES TO HAVE FREQUENT FLATULANCE WHICH HE BELIEVES IS CAUSING MOST OF HIS DISCOMFORT.
--- NOTE | 2019-03-10 16:55 | NUR ---
1655: BS 59. PT PROVIDED SPRITE PER REQUEST AND HYPOGLYCEMIC PROTOCOL INITIATED. PT ORDERED THREE PROTEIN JELLO'S, BUT HAS NO APPETITE TO EAT THEM AT PRESENT MOMENT. 1710: ADMINISTERED HALF AMP OF D50 PER HYPOGLYCEMIC PROTOCOL.
--- NOTE | 2019-03-10 18:10 | NUR ---
1809: PT STATES HE FEELS "REALLY HOT" ALL OVER HIS BODY. CURRENT VS: BP 145/82, HR 93, SP02 98%, RR 18, TEMP 98.6 ORAL 1814: BS 81 PT STATES IT'S GOING AWAY. FAN TURNED ON ABOVE PT ON LOW. WILL CONTINUE TO MONITOR.
[2019-03-11] VITALS (836 sets, daily range): BP systolic 114–177; BP diastolic 64–103; PULSE 71–88; TEMP 97.8–98.5; O2SAT 39–100
[2019-03-11 05:31] LABS: BASO % 0.3 % (0.0-2.0); EOS # 0.3 (0.0-0.7); EOS % 4.8 % (0-4.0); GRAN % 66.5 % (42.2-75.2); HEMATOCRIT 38.1 % (42.0-52.0); LYMPH # 0.7 (1.2-3.4); LYMPH % 11.3 % (20.0-51.0); MEAN CELL VOLUME 91 fl (80.0-100.0); MEAN CORPUSCULAR HEMOGLOBIN 29 pg (27.0-31.0); MEAN CORPUSCULAR HGB CONC 32 g/dl (33.0-37.0); MEAN PLATELET VOLUME 9.5 fl (7.4-10.4); MONO % 16.4 % (1.7-9.3); PLATELET COUNT 251 K/mm3 (130-400); RED BLOOD COUNT 4.17 M/mm3 (4.20-5.60); REDCELL DISTRIBUTION WIDTH-CV 15.3 % (11.5-14.5)
[2019-03-11 05:43] LABS: ALBUMIN 3.4 gm/dL (3.5-5.0); BILIRUBIN,TOTAL 0.8 mg/dL (0.0-1.0); CALCIUM 8.6 mg/dL (8.4-10.2); CREATININE, serum 1.77 (0.66-1.25); POTASSIUM 3.4 mmol/L (3.4-5.0); TOTAL PROTEIN 6.8 gm/dL (6.4-8.2)
--- NOTE | 2019-03-11 08:30 | NUR ---
Pt A&O x3. Pt has not been having an appetite, but agreed to attempt oral potassium replacement this am. Pt rates pain 8/10 in epigastric region described as "achey wrenching". 0910: Pt had sudden urge to deficate and has continued flatulence as he did yesterday. 0915: Pt provided additional pain medication 0920: BS 77 and pt continues to drink potassium replacement mixed with grape juice.
--- NOTE | 2019-03-11 13:00 | NUR ---
Pt has been up to the bathroom twice this afternoon and to the chair. 1400: Pt back to bed, stating the chair isn't very comfortable due to the back of the chair leaning back too much; pillows added behind pt, but does not help alleviate the discomfort.
--- NOTE | 2019-03-11 14:00 | NUR ---
PT STATES HE HAS PAIN IN HIS TOE NAILS UNRELATED TO HIS EPIGASTRIC PAIN. HE STATES HE HAS NEVER HAD IT BEFORE. 1430: PAIN IN TOE NAILS GOING AWAY.
--- NOTE | 2019-03-11 19:12 | NUR ---
REPORT GIVEN TO RAMAN RANDALL.
[2019-03-12] VITALS (503 sets, daily range): BP systolic 123–159; BP diastolic 72–113; PULSE 62–72; TEMP 97.4–98.9; O2SAT 69–100
[2019-03-12 05:22] LABS: BASO % 0.5 % (0.0-2.0); EOS # 0.4 (0.0-0.7); EOS % 5.8 % (0-4.0); GRAN # 3.7 (1.4-6.5); GRAN % 56.7 % (42.2-75.2); HEMATOCRIT 36.6 % (42.0-52.0); HEMOGLOBIN 11.8 g/dl (13.5-18.0); LYMPH # 1.2 (1.2-3.4); LYMPH % 18.7 % (20.0-51.0); MEAN CELL VOLUME 90 fl (80.0-100.0); MEAN CORPUSCULAR HEMOGLOBIN 29 pg (27.0-31.0); MEAN CORPUSCULAR HGB CONC 32 g/dl (33.0-37.0); MEAN PLATELET VOLUME 9.3 fl (7.4-10.4); MONO # 1.1 (0.1-0.6); MONO % 17.4 % (1.7-9.3); PLATELET COUNT 265 K/mm3 (130-400); RED BLOOD COUNT 4.07 M/mm3 (4.20-5.60); REDCELL DISTRIBUTION WIDTH-CV 14.9 % (11.5-14.5)
[2019-03-12 05:37] LABS: ALBUMIN 3.4 gm/dL (3.5-5.0); BILIRUBIN,TOTAL 0.5 mg/dL (0.0-1.0); CALCIUM 8.6 mg/dL (8.4-10.2); CREATININE, serum 1.56 (0.66-1.25); POTASSIUM 3.4 mmol/L (3.4-5.0); TOTAL PROTEIN 6.6 gm/dL (6.4-8.2)
--- NOTE | 2019-03-12 07:11 | NUR ---
Report received from Janel CAMARGO and care resumed.
--- NOTE | 2019-03-12 10:04 | NUR ---
Dr Allen in to see pt at this time.
--- NOTE | 2019-03-12 10:20 | NUR ---
Dr Layne in to see pt at this time.
--- NOTE | 2019-03-12 11:23 | NUR ---
Report called to Quita RN on surgical floor. Pt to transfer to 324 on tele.
--- NOTE | 2019-03-12 12:00 | NUR ---
Pt taken by wheelchair to room 324 with chart and belongings. Bedside update given to Quita CAMARGO.
--- NOTE | 2019-03-12 12:11 | NUR ---
Patient arrived to floor from ICU via wheelchair. Patient is alert and oriented, sitting on the side of the bed. Patient is currently at 97% on RA and reports pain at 4/10. Patient requests to take a shower, states he has not had one since admission. Assured patient that we would assist him with hygine at earliest oppertunity. Patient denies further needs, call light july truong.
--- NOTE | 2019-03-12 17:46 | NUR ---
Patient currently resting in bed, visitors at bedside. Patient remains alert and oriented, answers questions appropriately. Patient took a shower independently, only requiring help with set up. Patient remians on room air. Patient has requested PRN pain medication, but denies further needs, call light within reach.
[2019-03-13] VITALS (11 sets, daily range): BP systolic 132–162; BP diastolic 61–103; PULSE 67–99; TEMP 98–99.1
[2019-03-13 05:32] LABS: BASO % 0.6 % (0.0-2.0); EOS # 0.4 (0.0-0.7); EOS % 5.7 % (0-4.0); GRAN # 4.1 (1.4-6.5); GRAN % 59.2 % (42.2-75.2); HEMOGLOBIN 11.6 g/dl (13.5-18.0); LYMPH # 1.3 (1.2-3.4); LYMPH % 18.4 % (20.0-51.0); MEAN CELL VOLUME 88 fl (80.0-100.0); MEAN CORPUSCULAR HEMOGLOBIN 29 pg (27.0-31.0); MEAN CORPUSCULAR HGB CONC 33 g/dl (33.0-37.0); MEAN PLATELET VOLUME 9.2 fl (7.4-10.4); MONO % 14.7 % (1.7-9.3); PLATELET COUNT 243 K/mm3 (130-400); RED BLOOD COUNT 4.07 M/mm3 (4.20-5.60); REDCELL DISTRIBUTION WIDTH-CV 14.5 % (11.5-14.5)
[2019-03-13 05:34] LABS: HEMATOCRIT 35.7 % (42.0-52.0)
[2019-03-13 05:39] LABS: ALBUMIN 3.4 gm/dL (3.5-5.0); BILIRUBIN,TOTAL 0.6 mg/dL (0.0-1.0); CALCIUM 8.6 mg/dL (8.4-10.2); CREATININE, serum 1.51 (0.66-1.25); POTASSIUM 3.5 mmol/L (3.4-5.0); TOTAL PROTEIN 6.7 gm/dL (6.4-8.2)
--- NOTE | 2019-03-13 10:00 | NUR ---
Patient is showering. He has been sitting up on the side of the bed. He is using his incentive spirometer. Denies nausea and pain at this time. He has family at bedside. He is having some wheezing, his breathing treatments have been changed. No other changes at this time. Call light within reach.
--- NOTE | 2019-03-13 10:06 | NUR ---
SW attended clinical rounds with the team. The patient is to have a cholecystectomy today, 03/13. Physcial therapy is recommending home with no additional services. director of student services will continue to follow to ensure a safe discharge.
--- NOTE | 2019-03-13 10:20 | NUR ---
PICC intact right upper arm with sterile dressing change done with insertion site cleansed with chloraprep x 1, chlorhexidine impregnate disk applied, skin prep, stat lock, and tegaderm applied. no signs or symptoms of IV complications noted. no concerns voiced. will continue to monitor.
--- NOTE | 2019-03-13 11:30 | NUR ---
Patient is off the floor for surgery. His trilogy machine has been sent with patient for PACU. No other changes at this time.
--- NOTE | 2019-03-13 17:30 | NUR ---
Patient is back to the floor post-op. Minimal complaints of pain. No complaints of nausea. Patient is slightly drowsy. Vital signs stable. Discussed protocol for a robotic procedure with patient and his diet. No other changes at this time. Call light within reach.
--- NOTE | 2019-03-13 18:30 | NUR ---
Patient was standing at bedside and his right upper quadrant lap site started to leak. Reinforced with gauze and tape. Patient denies pain to site. Drainage was light pink/red. Patient had an accident in bed, he forgot he did not have a catheter and voided in the bed. Patient is getting tylenol scheduled for pain. Explained if it does not work to [facility]. No complaints of nausea. Reminded patient to use his incentive spirometer. No other changes at this time. Call light within reach.
--- NOTE | 2019-03-13 19:15 | NUR ---
Pt. resting in bed at this time. Pt. is arousable to verbal stimuli. Pt. is A&OX3, assessment complete. PICC to rt. upper arm patent, IV fluids infusing per orders. 5 abd. lap sites noted. 4 Well approximated with corea set. RUG lap site reported had some bleeding, gauze dressing CDI. Pt. denies further needs at this time. Call light within reach.
[2019-03-14 04:01] VITALS: BP 136/83; PULSE 66; TEMP 98.5
--- NOTE | 2019-03-14 06:40 | NUR ---
appears to be sleeping, bedside shift report received from RAMAN Haney
--- NOTE | 2019-03-14 07:55 | NUR ---
sitting up on side of bed. is moaning and stating he is having a lot of pain, medicated with roxicodone 5mg, instructed him if he starts having increased pain he needs to inform the nurse so pain med can be given, verbalizes understanding, states it had been OK during the night and just started increasing quickly this am, will lie back in bed and try to let pain pill take effect, O2 on at 2L/NC
[2019-03-14 07:59] VITALS: BP 157/88; PULSE 71; TEMP 98.4
[2019-03-14 08:48] LABS: HEMOGLOBIN 11.4 g/dl (13.5-18.0); MEAN CELL VOLUME 88 fl (80.0-100.0); MEAN CORPUSCULAR HEMOGLOBIN 29 pg (27.0-31.0); MEAN CORPUSCULAR HGB CONC 33 g/dl (33.0-37.0); MEAN PLATELET VOLUME 9.7 fl (7.4-10.4); PLATELET COUNT 295 K/mm3 (130-400); RED BLOOD COUNT 3.97 M/mm3 (4.20-5.60); REDCELL DISTRIBUTION WIDTH-CV 14.6 % (11.5-14.5)
[2019-03-14 08:55] LABS: ALBUMIN 3.4 gm/dL (3.5-5.0); BILIRUBIN,TOTAL 0.4 mg/dL (0.0-1.0); CALCIUM 8.7 mg/dL (8.4-10.2); CREATININE, serum 1.55 (0.66-1.25); TOTAL PROTEIN 6.5 gm/dL (6.4-8.2)
[2019-03-14 09:08] LABS: HEMATOCRIT 35.1 % (42.0-52.0)
--- NOTE | 2019-03-14 09:10 | NUR ---
states relief from pain pill given earlier, full assessment completed, see intervention for further info
--- NOTE | 2019-03-14 10:06 | NUR ---
resting in bed, denies needs at this time
[2019-03-14 10:14] LABS: EOSINOPHIL 1 % (0-4); LYMPHOCYTE 10 % (20.0-51.0); NEUTROPHILS 82 % (42.0-75.2)
[2019-03-14 10:15] LABS: PLATELET ESTIMATE NORMAL (NORMAL)
[2019-03-14 11:06] VITALS: BP 132/71; PULSE 83; TEMP 98.7
--- NOTE | 2019-03-14 11:22 | NUR ---
states pain is increasing, medicated with roxicodone 5mg and scheduled tylenol, states that there is less "spasming but pain is there
--- NOTE | 2019-03-14 12:30 | NUR ---
states pain is better, informed him he needs to get up and take a walk in the [place], he says therapy will be in to walk him around 2PM, will encourage him to se up in chair afte that
--- NOTE | 2019-03-14 14:10 | NUR ---
awake resting in bed denies needs
--- NOTE | 2019-03-14 15:30 | NUR ---
physical therapy in and worked with patient, only would walk around in the room, when spoke with him explained to him that he needed to be ambulating further than just around the room that it was good for his lungs also, will start getting up to use the bathroom and not use the urinal, verbalizes understanding
[2019-03-14 15:45] VITALS: BP 124/71; PULSE 79; TEMP 98.5
--- NOTE | 2019-03-14 18:12 | NUR ---
resting in bed, states has had supper and tolerated well, also states he got up and walked around room and is trying to exercise while in bed
--- NOTE | 2019-03-14 19:00 | NUR ---
bedside shift report given to RAMAN Haney
[2019-03-14 19:22] VITALS: BP 136/83; PULSE 72; TEMP 98.1
--- NOTE | 2019-03-14 19:30 | NUR ---
Pt. sitting up in bed at this time. Pt. is A&OX3, assessment complete. PICC to rt. upper arm patent. Pt. has ambulated in room. Pt. reports pain at a 5 on pain scale at this time. Gave pain meds per orders. Pt. denies further needs, call light within reach.
[2019-03-15 04:05] VITALS: BP 139/68; PULSE 61; TEMP 97.8
--- NOTE | 2019-03-15 05:38 | NUR ---
Pt. slept well through the night. Pt. remains A&Ox3. PICC to rt. upper arm patent. PICC caps changed and flushed at this time. Pt. denies pain or other needs. Call light within reach.
[2019-03-15 06:43] LABS: BASO % 0.4 % (0.0-2.0); EOS # 0.3 (0.0-0.7); EOS % 4.2 % (0-4.0); HEMOGLOBIN 11.3 g/dl (13.5-18.0); LYMPH # 2.2 (1.2-3.4); MEAN CELL VOLUME 89 fl (80.0-100.0); MEAN CORPUSCULAR HEMOGLOBIN 29 pg (27.0-31.0); MEAN CORPUSCULAR HGB CONC 32 g/dl (33.0-37.0); MEAN PLATELET VOLUME 9.3 fl (7.4-10.4); MONO # 0.9 (0.1-0.6); MONO % 11.6 % (1.7-9.3); PLATELET COUNT 290 K/mm3 (130-400); RED BLOOD COUNT 3.95 M/mm3 (4.20-5.60); REDCELL DISTRIBUTION WIDTH-CV 14.6 % (11.5-14.5)
[2019-03-15 06:52] LABS: CALCIUM 8.6 mg/dL (8.4-10.2); CREATININE, serum 1.42 (0.66-1.25); POTASSIUM 3.6 mmol/L (3.4-5.0)
[2019-03-15 07:51] VITALS: BP 144/78; PULSE 79; TEMP 97.8
--- NOTE | 2019-03-15 08:10 | NUR ---
Patient up independently in room. Expresses that he hopes to go home today. Lap sites to abdomen with edges well approximated, no redness, edema, or drainage from site. Certain movements do cause small amount of pain but not having discomfort at this time. Patient denies further needs.
[2019-03-15] MEDS ORDERED: ROXICODONE 55 MG/TAB PO (09:20)
--- NOTE | 2019-03-15 09:21 | NUR ---
viscose cellar worker attended clinical rounding and met with patient to discuss discharge plan. Patient states he lives with his family and plans to return there upon discharge today. Patient is ambulating in the halls without difficulty this morning. 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 Patient confirms that he has [employer] insurance and that it assists with medications at home. Patient states he has a ride home today around 5:00pm. Patient denies any unmet needs upon discharge. Patient will obtain a note to give to his employer regarding time off after discharge.
[2019-03-15 11:56] VITALS: BP 135/67; PULSE 68; TEMP 98.3
--- NOTE | 2019-03-15 11:56 | NUR ---
Reviewed all discharge instructions, medications, and follow up appointments with the patient. Provided patient with completed [place] paperwork in packet. All questions answered. Patient verbalizes understanding and denies any further questions at this time. Patient explains that his ride will not be available to pick him up until around 1700 tonight. Explained that is fine. Mica with IVS informed that patient expecting to leave around 1700 so that she knew when PICC would need to be dc'd. Patient lying in bed and will try to take a nap at this time. Denies any further needs.
[2019-03-15 15:47] VITALS: BP 118/61; PULSE 75; TEMP 98.3
--- NOTE | 2019-03-15 17:04 | NUR ---
Patient discharged with family and ambulates to vehicle. All belongings returned to patient. Verbalizes understanding to all and denies further concerns or needs.
== END 2019-03-15 17:14 | disposition home or self-care (01) | DRG 408 ==
LOC: COL.ER 17:21 → SURG 19:50 → ICU 19:50 → SURG 03-12 11:45
PROVIDERS: Internal Medicine Pulmonary Disease; Nurse Practitioner Family; Physician Assistant; ADMIT Emergency Medicine
PROC: 02HV33Z Insertion of Infusion Device into Superior Vena Cava, Percutaneous Approach (ICD-10-PCS; principal; 2019-03-08)
PROC: 0FC44ZZ Extirpation of Matter from Gallbladder, Percutaneous Endoscopic Approach (ICD-10-PCS; 2019-03-13)
PROC: 0FT44ZZ Resection of Gallbladder, Percutaneous Endoscopic Approach (ICD-10-PCS; 2019-03-13)
PROC: 8E0W4CZ Robotic Assisted Procedure of Trunk Region, Percutaneous Endoscopic Approach (ICD-10-PCS; 2019-03-13)
DX: K85.10 Biliary acute pancreatitis without necrosis or infection (principal); J96.21 Acute and chronic respiratory failure with hypoxia; J18.9 Pneumonia, unspecified organism; J98.11 Atelectasis; Z68.44 Body mass index [BMI] 60.0-69.9, adult; N17.9 Acute kidney failure, unspecified; I10 Essential (primary) hypertension; E66.01 Morbid (severe) obesity due to excess calories; G47.33 Obstructive sleep apnea (adult) (pediatric); K21.9 Gastro-esophageal reflux disease without esophagitis; N14.2 Nephropathy induced by unspecified drug, medicament or biological substance; K80.20 Calculus of gallbladder without cholecystitis without obstruction; Z87.891 Personal history of nicotine dependence
CPT/HCPCS: 99223-AI; 99232-AI; 99233-AI; 99239; A9284; C1751; C9113; J0330; J0360; J0690; J1100; J1170; J1644; J1650; J2405; J2543; J2550; J2704; J3010; J3480; J7030; J7042; J7120; Q9967

== ENCOUNTER → 2019-05-11 | Outpatient (CLI) | payer BC ==
[~2019-05-11] MED LIST changes: +CATAPRES 0.1MG0.1 MG PO; +HYGROTON 2525 MG/TAB PO; +IPRATROPIUM BROM3 M1 IH; +LASIX 20MG TABL20 MG PO; +NORVASC 10MG10 MG PO; +PEPCID 20MG TAB20 MG PO; +PRINIVIL40 MG PO; +ROBITUSSIN A-C S1 M1 PO; +ROXICODONE 55 MG/TAB PO
[2019-05-11 11:37] LABS: ARTERIAL BLD GAS O2 SATURATION 95.9 % (92-100); ARTERIAL BLD GAS TCO2 CT 26.8; ARTERIAL BLOOD GAS BASE EXCESS 0.7 (-2-2); ARTERIAL BLOOD GAS HCO3 25.5 meq/L (22-26); ARTERIAL BLOOD GAS PCO2 41.9 mmHg (35-45); ARTERIAL BLOOD GAS PO2 77.4 mmHg (80-100)
== END ==
LOC: COL.PUL 08:00
PROVIDERS: Internal Medicine Pulmonary Disease
DX: G47.33 Obstructive sleep apnea (adult) (pediatric) (principal)

== ENCOUNTER → 2020-03-18 | Outpatient (CLI) | payer BC | LOC: COL.RAD 09:43 | DX: M51.37 Other intervertebral disc degeneration, lumbosacral region (principal); M25.552 Pain in left hip ==

== ENCOUNTER → 2021-04-22 | Outpatient (CLI) | payer BC | LOC: COL.RAD 09:31 | DX: K43.9 Ventral hernia without obstruction or gangrene (principal); K76.0 Fatty (change of) liver, not elsewhere classified; Z90.49 Acquired absence of other specified parts of digestive tract ==

== ENCOUNTER 2021-06-10 10:36 | Day surgery (SDC) | payer BC ==
[~2021-06-10] VITALS: Ht 170.2 cm; Wt 200.0 kg
[2021-06-10] VITALS (8 sets, daily range): BP systolic 123–150; BP diastolic 58–90; PULSE 65–87; TEMP 97.9–98
[2021-06-10] MEDS ORDERED: NORCO 325 MG-51 TAB PO (14:16)
--- NOTE | 2021-06-10 15:35 | NUR ---
Patient returns to room 8 per cart from PACU accompanied by Kaur CAMARGO and is awake and alert. Temp 97.9 and sats 100% on 2L per mask. Abdominal binder in place and bandaids x4 in place on the left side of the abdomen. IV fluids infusing. Siderails up x2 and call light in reach. Allowed to rest.
--- NOTE | 2021-06-10 15:50 | NUR ---
More awake and drinking cranberry juice. Denies need for pain medications at present time.
--- NOTE | 2021-06-10 16:05 | NUR ---
Eating applesauce. Offers no complaints of pain.
--- NOTE | 2021-06-10 16:20 | NUR ---
Tolerated applesauce and juice. IV to INT. Assisted to the bathroom. Gait steady. Denies pain. Ambulates in the hallway.
--- NOTE | 2021-06-10 16:35 | NUR ---
Unable to void and returns to room. Sits on edge of the cart. Drinking water. Room air sats sitting up 94%.
--- NOTE | 2021-06-10 16:40 | NUR ---
Sats 88-94 sitting on edge of the cart. Placed on oxygen at 2L.
--- NOTE | 2021-06-10 17:10 | NUR ---
Up walking in the hallway and gait steady. Able to void and returns to room. Room air sats after walking 92-94. Does use Bi pap at home and will put it on when he gets home.
--- NOTE | 2021-06-10 17:20 | NUR ---
INT discontinued and site is free of redness. Patient dresses self.
--- NOTE | 2021-06-10 17:27 | NUR ---
Dismissal instructions given and voices understanding of these. Abdominal binder in place.
--- NOTE | 2021-06-10 17:33 | NUR ---
Patient dismissed to home driven by brother and taken to the front door per wheelchair and assisted into vehicle with instructions in hand.
== END 2021-06-10 17:33 | disposition home or self-care (01) ==
LOC: SDCO 10:36
DX: K43.0 Incisional hernia with obstruction, without gangrene (principal); K21.9 Gastro-esophageal reflux disease without esophagitis; I10 Essential (primary) hypertension; G47.30 Sleep apnea, unspecified; G47.33 Obstructive sleep apnea (adult) (pediatric); E87.6 Hypokalemia; Z79.899 Other long term (current) drug therapy; Z99.89 Dependence on other enabling machines and devices; Z90.49 Acquired absence of other specified parts of digestive tract; Z80.1 Family history of malignant neoplasm of trachea, bronchus and lung
CPT/HCPCS: C1781; J0360; J0690; J1170; J2405; J2704; J3010; J7120

== ENCOUNTER 2022-01-21 05:49 | Emergency (ER) | payer BC ==
[~2022-01-21] VITALS: Ht 170.2 cm; Wt 204.5 kg
[~2022-01-21 05:49] MED LIST changes: +NORCO 325 MG-51 TAB PO
[2022-01-21 06:16] VITALS: TEMP 98.2
[2022-01-21 06:31] LABS: BASO # 0.1 K/mm3 (0.0-0.2); EOS # 0.2 K/mm3 (0.0-0.7); EOS % 4.3 % (0.0-4.0); GRAN # 2.4 K/mm3 (1.4-6.5); GRAN % 47.6 % (42.2-75.2); HEMATOCRIT 42.3 % (42.0-52.0); HEMOGLOBIN 13.5 g/dl (13.5-18.0); LYMPH # 1.8 K/mm3 (1.2-3.4); LYMPH % 35.8 % (20.0-51.0); MEAN CELL VOLUME 90 fl (80.0-100.0); MEAN CORPUSCULAR HEMOGLOBIN 29 pg (27-31); MEAN CORPUSCULAR HGB CONC 32 g/dl (33.0-37.0); MONO # 0.5 K/mm3 (0.1-0.6); MONO % 10.9 % (1.7-9.3); PLATELET COUNT 261 K/mm3 (130-400); RED BLOOD COUNT 4.68 M/mm3 (4.20-5.60); REDCELL DISTRIBUTION WIDTH-CV 13.6 % (11.5-14.5)
[2022-01-21 07:02] LABS: ALBUMIN 3.5 gm/dL (3.5-5.0); BILIRUBIN,TOTAL 0.4 mg/dL (0.2-1.2); CREATININE, serum 0.79 mg/dL (0.72-1.25); POTASSIUM 4.4 mmol/L (3.5-4.5); TOTAL PROTEIN 6.9 gm/dL (6.2-8.1)
[2022-01-21 07:35] VITALS: BP 144/85; PULSE 65
== END 2022-01-21 07:35 | disposition home or self-care (01) ==
LOC: COL.ER 05:49
PROVIDERS: Emergency Medicine Emergency Medical Services
DX: E87.8 Other disorders of electrolyte and fluid balance, not elsewhere classified (principal); E66.01 Morbid (severe) obesity due to excess calories